=== PATIENT | male | born 1975 | race Caucasian/White ===

== ENCOUNTER 2018-11-17 11:27 | Emergency (ER) | payer OTHER ==
--- OUTSIDE RECORDS SUMMARY | 2018-11-17 11:34 | XMS REPORT | Continuity of Care Document ---
:1975 External Reference #:[id number] Author Name Kim Robert Care Team Providers Name Role Phone Moises Norris MD Primary Care Physician Unavailable Payers Date Identification Numbers Payment Provider Subscriber Policy Number: [id number] [employer] Sissy Caldwell [employer] Number: [id number] [id number] PayID: [id number] [place] [address] Advance Directives Description No Information Available Problems Date Description Provider Status Onset: 09/17/2014 Impaired fasting glycaemia Moises Norris M.D. Active Onset: 09/17/2014 Testicular hypofunction Moises Norris M.D. Active Onset: 09/22/2016 Difficulty breathing Zaynab Loco MD Active Onset: 11/06/2016 Mixed hyperlipidemia Moises Norris M.D. Active Onset: 11/06/2016 Asthma without status asthmaticus Moises Norris M.D. Active Onset: 12/11/2016 Obstructive sleep apnea syndrome Emperatriz Gallardo DNP, RN, Active X RAY OPERATOR-BC Onset: 12/11/2016 Hypersomnia Emperatriz Gallardo DNP, RN, Active X RAY OPERATOR-BC Onset: 03/16/2018 Right temporomendibular joint Moises Norris M.D. Active disorder Onset: 12/06/2017 Insomnia Moises Norris M.D. 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 [employer] ETOH Use Denies alcohol use ETOH Use Quit 6 years ago as of 2016 Tobacco Use Start: Unknown Patient has never smoked Recreational Drug Use Former Drug User 12 years ago was using cocaine Recreational Drug Use Quit 6 years ago as of 2016 Smoking Status Reviewed: 10/19/18 Patient has never smoked Exercise Type/Frequency Exercises regularly 5 days a week-1 hour , weight lifting, cardio , interval training Allergies, Adverse Reactions, Alerts Date Description Reaction Status Severity Comments 09/17/2014 NKDA Active 10/14/2018 Mold Active 10/14/2018 Animal Dander Active Medications Medication Date Status Form Strength Qnty SIG Indications Ordering Provider Trazodone HCL 12/06 Active Tablets 50mg 30tab Take 1 & G47.00 s 1/2 Tablet Pachikara, By Mouth M.D. AT Bedtime Mandibular 10/27 Active Device 1unit fabricate Emperatriz s oral Gallardo, Device appliance ABIEL, RN, /catherine RUIZ-BC r advancemen t device for sleep apnea with needed adjustment s. Proair HFA 06/07 Active Aerosol 108(90Bas 18uni 2 puffs ih J45.909 e) ts every 4 Pachikara, mcg/Act hours as M.D. needed Multi For Him Active Capsules once a day Unknown / Qvar Redihaler Active Aerosol 80mcg/Act 2 puffs Unknown /0000 twice daily Levocetirizine Active Tablets 5mg Take 1 Unknown Dihydrochloride /0000 Tablet By Mouth Every Day as Needed Qnasl Active Aerosol 80mcg/Act ( has not Unknown /0000 started , picked up from pharmacy) Ibuprofen 03/16 Hx Tablets 600mg 90tab three M26.601 s times a Pachikara, - day M.D. 10/13 Trazodone HCL 12/06 Hx Tablets 50mg 30tab take 1- J45.909 s 1/2 tab by Pachikara, - mouth at M.D. 12/06 bedtime Flovent Diskus 09/21 Hx Aerosol 250mcg/Bl 1 puff ist twice a - day (using 06/07 in the p.m.) Flonase Allergy 09/21 Hx Suspension 50mcg/Act spray 1 Unknown spray in - each 10/13 nostril directed Xtend Bcaas 06/29 Hx 1 scoop Camilo SNy daily Law, DO Supplement - FACC 06/06 Dulera 03/20 Hx Aerosol 200-5mcg/ 1unit 2 puff 493.90 Act s twice a Pachikara, - day M.D. 10/18 Ventolin HFA 03/20 Hx Aerosol 108(90Bas 8.5gm 2 puffs by J45.909 e) mouth four Pachikara, - mcg/Act times a M.D. needed(pat ient no longer using) Nasonex 03/20 Hx Suspension 50mcg/Act 1Mon 1 spray J45.909 tristan each Pachikara, - side every M.D. Testosyn 00 Hx 3 tabs bid Unknown /0000 - 10/18 Advair Diskus Hx Aerosol 250-50mcg 1 puff by Unknown /0000 /Dose mouth - twice a 10/07 day ( in the a.m.) Protein Shake 00 Hx 4 scoops Unknown (Raw Protein And /0000 daily Greens) - 09/21 Super Test 00/00 Hx 3 in Am, 3 Unknown /0000 in PM - m 06/06 Dhea 00/00 Hx 100mg 3 daily Unknown /0000 - 06/06 Wheybolic 0000 Hx Powder 4 scoops Unknown Extreme 60 /0000 daily - 06/06 Immunizations CPT Code Status Date Vaccine Reaction Lot # [id number] Given 10/19/2018 Tdap - [id number] Tetanus/Diptheria/Acellular Pertussis 13970 Given 06/07/2017 Influenza Virus Vaccine, no immediate reaction, [id number] Quadrivalent, Split, pt tolerated well Preservative Free Vital Signs Date Vital Result Comment 10/19/2018 2:45pm Height 71 inches 5'11" Weight 225.00 lb Heart Rate 100 /min BP Systolic Sitting 141 mmHg BP Diastolic Sitting 85 mmHg O2 % BldC Oximetry 99 % BMI (Body Mass Index) 31.4 kg/m2 10/14/2018 3:35pm Height 71 inches 5'11" Weight 220.00 lb no shoes Heart Rate 80 /min BP Systolic Sitting 134 mmHg lue reg cuff BP Diastolic Sitting 90 mmHg lue reg cuff BP Systolic Standing 140 mmHg lue reg cuff BP Diastolic Standing 100 mmHg lue reg cuff BP Systolic Lying Down 128 mmHg Rue lg cuff BP Diastolic Lying Down 90 mmHg Rue lg cuff Respiratory Rate 16 /min O2 % BldC Oximetry 98 % BMI (Body Mass Index) 30.7 kg/m2 Ejection Fraction 55-60% echo.07/03/2016 04/06/2018 8:07am Weight 222.00 lb with shoes Heart Rate 87 /min BP Systolic 122 mmHg BP Diastolic 80 mmHg O2 % BldC Oximetry 98 % 03/16/2018 3:02pm Height 71 inches 5'11" Weight 222.00 lb Heart Rate 79 /min BP Systolic Sitting 130 mmHg BP Diastolic Sitting 78 mmHg Body Temperature 97.9 F O2 % BldC Oximetry 96 % BMI (Body Mass Index) 31.0 kg/m2 12/15/2017 8:32am Weight 224.00 lb Heart Rate 84 /min BP Systolic 125 mmHg BP Diastolic 76 mmHg O2 % BldC Oximetry 99 % 12/06/2017 1:36pm Height 70.5 inches 5'10.50" Weight 223.38 lb Heart Rate 78 /min BP Systolic 110 mmHg BP Diastolic 76 mmHg O2 % BldC Oximetry 96 % BMI (Body Mass Index) 31.6 kg/m2 06/07/2017 3:03pm Height 70.5 inches 5'10.50" Weight 231.25 lb Heart Rate 79 /min BP Systolic 134 mmHg BP Diastolic 68 mmHg Body Temperature 98.6 F O2 % BldC Oximetry 96 % BMI (Body Mass Index) 32.7 kg/m2 03/12/2017 9:32am Height 70.5 inches 5'10.50" Weight 235.00 lb Heart Rate 70 /min BP Systolic Sitting 108 mmHg BP Diastolic Sitting 86 mmHg Respiratory Rate 20 /min O2 % BldC Oximetry 97 % room air BMI (Body Mass Index) 33.2 kg/m2 12/11/2016 10:43am Height 70.5 inches 5'10.50" Weight 228.00 lb Heart Rate 79 /min BP Systolic Sitting 120 mmHg BP Diastolic Sitting 72 mmHg Respiratory Rate 16 /min Pain Level 0 O2 % BldC Oximetry 94 % BMI (Body Mass Index) 32.2 kg/m2 11/06/2016 2:43pm Height 70.5 inches 5'10.50" Weight 228.00 lb Heart Rate 80 /min BP Systolic Sitting 116 mmHg BP Diastolic Sitting 84 mmHg Body Temperature 98.1 F O2 % BldC Oximetry 98 % BMI (Body Mass Index) 32.2 kg/m2 10/19/2016 10:07am Height 71 inches 5'11" Weight 224.00 lb Heart Rate 80 /min BP Systolic Sitting 126 mmHg BP Diastolic Sitting 72 mmHg Respiratory Rate 14 /min O2 % BldC Oximetry 97 % BMI (Body Mass Index) 31.2 kg/m2 09/22/2016 11:10am Height 71 inches 5'11" Weight 220.00 lb Heart Rate 94 /min BP Systolic Sitting 130 mmHg BP Diastolic Sitting 74 mmHg Respiratory Rate 14 /min O2 % BldC Oximetry 97 % BMI (Body Mass Index) 30.7 kg/m2 Neck Circumference in inches 17.25 07/06/2016 3:47pm Height 71 inches 5'11" Weight 222.00 lb without shoes Heart Rate 80 /min BP Systolic Sitting 120 mmHg Ra lg cuff BP Diastolic Sitting 90 mmHg Ra lg cuff BP Systolic Standing 120 mmHg Ra lg cuff BP Diastolic Standing 92 mmHg Ra lg cuff Respiratory Rate 17 /min BMI (Body Mass Index) 31.0 kg/m2 Ejection Fraction 55-60% date 07/03/16 ECHO 06/29/2016 3:25pm Height 71 inches 5'11" Weight 224.50 lb with shoes Heart Rate 88 /min BP Systolic 110 mmHg Ra lg cuff BP Diastolic 80 mmHg Ra lg cuff BP Systolic Sitting 110 mmHg La lg cuff BP Diastolic Sitting 80 mmHg La lg cuff BP Systolic Standing 124 mmHg La lg cuff BP Diastolic Standing 88 mmHg La lg cuff Respiratory Rate 18 /min BMI (Body Mass Index) 31.3 kg/m2 05/06/2016 1:05pm Height 71 inches 5'11" Weight 222.00 lb Heart Rate 85 /min BP Systolic Sitting 124 mmHg BP Diastolic Sitting 82 mmHg O2 % BldC Oximetry 97 % BMI (Body Mass Index) 31.0 kg/m2 10/18/2015 10:00am Height 71 inches 5'11" Weight 216.50 lb Heart Rate 78 /min BP Systolic Sitting 112 mmHg BP Diastolic Sitting 82 mmHg Body Temperature 97.9 F O2 % BldC Oximetry 98 % BMI (Body Mass Index) 30.2 kg/m2 03/20/2015 7:34am Weight 220.00 lb Heart Rate 83 /min BP Systolic Sitting 115 mmHg BP Diastolic Sitting 77 mmHg Body Temperature 97.4 F 09/17/2014 1:49pm Height 71.25 inches 5'11.25" Weight 229.00 lb Heart Rate 80 /min BP Systolic Sitting 126 mmHg BP Diastolic Sitting 84 mmHg Body Temperature 98.3 F O2 % BldC Oximetry 96 % BMI (Body Mass Index) 31.7 kg/m2 Results Test Date Facility Test Result H/L Range Note Laboratory test [facility] Hepatitis B Nonreactive Nonreactive finding [address] [place] [address] [phone] Hepatitis B Core AB Igm MML Negative Negative 1 Hepatitis B Core AB Igm Nonreactive Nonreactive Hepatitis B Core AB Total Negative Negative 2 Laboratory 12/06/2017 [facility] Hepatitis C Nonreactive Nonreactive test finding [address] [place] [address] [phone] Hepatitis B 12/06/2017 [facility] Hepatitis B Immune Immune Bobby AB Titer [address] [place] [address] [phone] Hep B Surf AB Level 759.53 mIU/mL >12 Lipid Profile 11/29/2017 [facility] Triglycerides 52 mg/dL 3 (Trig/Chol/HDL) [address] [place] [address] [phone] Cholesterol 177 mg/dL 4 HDL Cholesterol 45.3 mg/dL 5 LDL Cholesterol 121 mg/dL 6 Laboratory 06/03/2017 [facility] Testosterone 1229.80 High 240 -950 7, 8 test finding [address] Total ng/dL [place], [place] [id number] [phone] PSA Screening 0.933 ng/mL N 0-4.000 9 Lipid Profile 06/03/2017 [facility] Triglycerides 84 mg/dL N 10 (Trig/Chol/HDL) [address] [place], [place] [address] [phone] Cholesterol 207 mg/dL N 11 HDL Cholesterol 20.7 mg/dL N 12 LDL Cholesterol 170 mg/dL N 13 CBC Auto Diff 06/03/2017 [facility] White Blood 5.3 10^3/uL N 3.5-10.[address] [place] [address] [phone] Red Blood Count 5.83 10^6/uL High 4.0-5.4 Hemoglobin 17.1 g/dL N 14.0-18.0 Hematocrit 51 % N 42-52 Mean Corpuscular Volume 87 fL N 80-94 Mean Corpuscular Hemoglobin 29 pg N 27-31 Mean Corpuscular HGB Conc 34 g/dL N 31-36 Red Cell Distribution Width 15 % N 10.5-15 Platelet Count 247 10^3/uL N 150-450 Mean Platelet Volume 10 um3 N 7.4-10.4 Abs Neutrophils 3.1 10^3/uL N 1.5-7.7 Abs Lymphocytes 1.6 10^3/uL N 1.0-4.8 Abs Monocytes 0.5 10^3/uL N 0-0.8 Abs Eosinophils 0.1 10^3/uL N 0-0.6 Abs Basophils 0 10^3/uL N 0-0.2 Abs Nucleated RBC 0 10^3/uL N Granulocyte % 58.2 % N 38-83 Lymphocyte % 30.3 % N 25-47 Monocyte % 8.9 % N 1-9 Eosinophil % 1.8 % N 0-6 Basophil % 0.8 % N 0-2 Nucleated Red Blood Cells % 0.1 N Liver Function 06/03/2017 [facility] Total Protein 6.6 g/dL N 6.4-8.[address] [place] [address] [phone] Albumin 4.3 g/dL N 3.2-5.2 Globulin 2.3 g/dL N 2-4 Albumin/Globulin Ratio 1.9 N 1-3 Total Bilirubin 0.80 mg/dL N 0.2-1.0 Direct Bilirubin 0.10 mg/dL N 0.03-0.18 Indirect Bilirubin 0.7 mg/dL N 0.3-1.0 Alkaline Phosphatase 41 U/L N 34-104 Alt 28 U/L N 7-52 Ast 28 U/L N 13-39 Comp Metabolic Panel 06/03/2017 [facility] Sodium 134 mmol/L N 133-[address] [place] [address] [phone] Potassium 4.4 mmol/L N 3.5-5.0 Chloride 101 mmol/L N 101-111 Co2 Carbon Dioxide 28 mmol/L N 22-32 Anion Gap 5 mmol/L N 2-11 Glucose 82 mg/dL N 70-100 Blood Urea Nitrogen 18 mg/dL N 6-24 Creatinine 1.21 mg/dL High 0.67-1.17 BUN/Creatinine Ratio 14.9 N 8-20 Calcium 9.1 mg/dL N 8.6-10.3 Total Protein 6.7 g/dL N 6.4-8.9 Albumin 4.4 g/dL N 3.2-5.2 Globulin 2.3 g/dL N 2-4 Albumin/Globulin Ratio 1.9 N 1-3 Total Bilirubin 0.80 mg/dL N 0.2-1.0 Alkaline Phosphatase 39 U/L N 34-104 Alt 28 U/L N 7-52 Ast 27 U/L N 13-39 Egfr Non- 65.4 N >60 Egfr 84.2 N >60 14 Laboratory test 06/03/2017 [facility] TSH (Thyroid 1.33 mcIU/mL N 0.34-5.[address] Stim [place]orm) [place] [address] [phone] Folic Acid (Folate) > 20.00 ng/mL N >3.99 Vitamin B12 683 pg/mL N 180-914 15 Urinalysis Profile 06/03/2017 [facility] Urine Color Yellow N [address] [place] [address] [phone] Urine Appearance Clear N Urine Specific [place] 1.011 N 1.010-1.030 Urine pH 6.0 N 5-9 Urine Urobilinogen Negative N Negative Urine Ketones Negative N Negative Urine Protein Negative N Negative Urine Leukocytes Negative N Negative Urine Blood Negative N Negative Urine Nitrite Negative N Negative Urine Bilirubin Negative N Negative Urine Glucose Negative N Negative Testosterone 11/24/2016 [facility] Free 12.3 N 4.46-17.1 16 Free & Total [address] Testosterone ng/[place] [address] ng/dl [phone] Testosterone 232 ng/dL Abnormal 240-950 17 Lipid Profile 11/04/2016 [facility] Triglycerides 81 mg/dL N 18 (Trig/Chol/HDL) [address] [place], [place] [address] [phone] Cholesterol 221 mg/dL N 19 HDL Cholesterol 31.3 mg/dL N 20 LDL Cholesterol 174 mg/dL N 21 Laboratory test 11/04/2016 [facility] Glucose 92 mg/dL N 70- 100 22 finding [address] [place], [place] [address] [phone] Lipid Profile 10/11/2015 [facility] Triglycerides 75 mg/dL N 23 (Trig/Chol/HDL) [address] [place], [place] [address] [phone] Cholesterol 191 mg/dL N 24 HDL Cholesterol 63.0 mg/dL N 25 LDL Cholesterol 113 mg/dL N 26 Laboratory test 10/11/2015 [facility] Glucose 101 mg/dL High 70-100 finding [address] [place], [place] [address] [phone] Basic Metabolic 10/01/2014 [facility] Sodium 136 mmol/L N 133- 145 27 Panel [address] [place] [address] [phone] Potassium 4.0 mmol/L N 3.5-5.0 Chloride 104 mmol/L N 101-111 Co2 Carbon Dioxide 26 mmol/L N 22-32 Anion Gap 6 mmol/L N 2-11 Glucose 107 mg/dL High 70-100 Blood Urea Nitrogen 14 mg/dL N 6-24 Creatinine 1.07 mg/dL N 0.67-1.17 BUN/Creatinine Ratio 13.1 N 8-20 Calcium 9.1 mg/dL N 8.6-10.3 Egfr Non- 76.2 N >60 Egfr 97.9 N >60 28 Testosterone Free 10/01/2014 [facility] Free Testosterone 18 ng/ dL N 9-30 29 & Total [address] ng/[place] [address] [phone] Testosterone 427 ng/dL N 240-950 30 Laboratory test 10/01/2014 [facility] PSA Screening 0.632 N 0- 4.000 [address] ng/mL [place], [place] [address] [phone] Lipid Profile 09/13/2014 [facility] Triglycerides 123 mg/dL N 32, 33 (Trig/Chol/HDL) [address] [place] [address] [phone] Cholesterol 200 mg/dL N 34 HDL Cholesterol 53.3 mg/dL N 35 LDL Cholesterol 122 mg/dL N 36 Laboratory test 09/13/2014 [facility] Glucose 103 mg/dL High 70-100 [address] [place] [address] [phone] 1 Test Performed by: [facility] [address] [place] [address] 2 Test Performed by: [facility] [address] [place] [address] 3 Desirable: <150 Borderline High: 150-199 High: 200-499 Very High: >500 4 Desirable: <200 Borderline High: 200-239 High: >239 5 Low: <40 Desirable: 40-60 High: >60 6 Desirable: <100 Near Optimal: 100-129 Borderline High: 130-159 High: 160-189 Very High: >189 7 FASTING 8 FASTING 9 Serum levels of PSA measured using the Brittany PenPath DXI Hybritech immunoassay should not be interpreted as absolute evidence of the presence or absence of disease. The PSA value should be used in conjunction with other pertinent clinical diagnostic procedures. The values obtained with different assay methods or kits cannot be used interchangeably. 10 Desirable <150 Borderline high 150-199 High 200-499 Very High >500 11 Desirable <200 Borderline high 200-239 High >239 12 Low <40 Desirable: 40-60 High: >60 13 Desirable: <100 mg/dL Near Optimal: 100-129 mg/dL Borderline High: 130-159 mg/dL High: 160-189 mg/dL Very High: >189 mg/dL 14 Because ethnic data is not always readily available, this report includes an eGFR for both -Americans and non- Americans. The National Kidney Disease Education Program (NKDEP) does not endorse the use of the MDRD equation for patients that are not between the ages of 18 and 70, are , have extremes of body size, muscle mass, or nutritional status, or are non- or non-. According to the National Kidney Foundation, irrespective of diagnosis, the stage of the disease is based on the level of kidney function: Stage Description GFR(mL/min/1.73 m(2)) 1 Kidney damage with normal or decreased GFR 90 2 Kidney damage with mild decrease in GFR 60-89 3 Moderate decrease in GFR 30-59 4 Severe decrease in GFR 15-29 5 Kidney failure <15 (or dialysis) 15 Normal Range 180 to 914 Indeterminate Range 145 to 180 Deficient Range <145 16 ADDITIONAL INFORMATION Testing performed by [facility]. This test was developed and its performance characteristics determined by [facility] in a manner consistent with CLIA requirements. This test has not been cleared or approved by the U.S. Food and Drug Administration. 17 ADDITIONAL INFORMATION Testing performed by Liquid Chromatography-Tandem Mass Spectrometry (LC-MS/MS). This test was developed and its performance characteristics determined by [facility] in a manner consistent with CLIA requirements. This test has not been cleared or approved by the U.S. Food and Drug Administration. Test Performed by: [address] [address] 18 Desirable <150 Borderline high 150-199 High 200-499 Very High >500 19 Desirable <200 Borderline high 200-239 High >239 20 Low <40 Desirable: 40-60 High: >60 21 Desirable: <100 mg/dL Near Optimal: 100-129 mg/dL Borderline High: 130-159 mg/dL High: 160-189 mg/dL Very High: >189 mg/dL 22 FASTING 10 HOUR 23 Desirable <150 Borderline high 150-199 High 200-499 Very High >500 24 Desirable <200 Borderline high 200-239 High >239 25 Low <40 Desirable: 40-60 High: >60 26 Desirable: <100 mg/dL Near Optimal: 100-129 mg/dL Borderline High: 130-159 mg/dL High: 160-189 mg/dL Very High: >189 mg/dL 27 FASTING 12 HOUR 28 Because ethnic data is not always readily available, this report includes an eGFR for both -Americans and non- Americans. The National Kidney Disease Education Program (NKDEP) does not endorse the use of the MDRD equation for patients that are not between the ages of 18 and 70, are , have extremes of body size, muscle mass, or nutritional status, or are non- or non-. According to the National Kidney Foundation, irrespective of diagnosis, the stage of the disease is based on the level of kidney function: Stage Description GFR(mL/min/1.73 m(2)) 1 Kidney damage with normal or decreased GFR 90 2 Kidney damage with mild decrease in GFR 60-89 3 Moderate decrease in GFR 30-59 4 Severe decrease in GFR 15-29 5 Kidney failure <15 (or dialysis) 29 ADDITIONAL INFORMATION Testing performed by [facility]. 30 ADDITIONAL INFORMATION Testing performed by Liquid Chromatography-Tandem Mass Spectrometry (LC-MS/MS). Test Performed by: [place] [address] Byproducts Extractor: Ronak Gonzalez M.D. 31 FASTING 12 HOUR 32 FASTING 10 HOUR 33 Desirable <150 Borderline high 150-199 High 200-499 Very High >500 34 Desirable <200 Borderline high 200-239 High >239 35 Low <40 Desirable: 40-60 High: >60 36 Desirable <100 Near Optimal 100-129 Borderline high 130-159 High 160-189 Very High >189 37 FASTING 10 HOUR Procedures Date Code Description Status 01/27/2017 14909 Stress Test Completed 09/30/2016 26901 Sleep Study Unattended,HRT Rate,Oxygen Sat,Resp Completed Effort/Airflow 07/03/2016 29164 ECHO Transthoracic, Real-Time 2D With Doppler And Color Completed Flow 07/02/2016 00557 Holter Monitor Review (24 hr)dr review & interp only Completed 07/01/2016 92522 ECG Monitor/Recording W/Visual Superimposition Scanning Completed 06/29/2016 43764 EKG Tracing & Interpretation Completed 03/14/2013 48907 Stress Test Completed Encounters Type Date Location Provider Dx Diagnosis Office Visit 10/14/2018 Linda Giron R07.9 Chest pain, unspecified 4:00p Cardiology Of DO Tiff Law FACC Office Visit 04/06/2018 [facility] [place] M26.601 Right temporomandibular 8:00a Bridgette Norris joint disorder, Leland Levine unspecified J45.909 Unspecified asthma, uncomplicated G47.00 Insomnia, unspecified Office 03/16/2018 [facility] [place] M26.601 Right Visit 2:40p Bridgette Norris M.D. temporomandibular [place] joint disorder, unspecified Office 12/15/2017 [facility] [place] B18.1 Chronic viral Visit 8:40a Bridgette Norris M.D. hepatitis B without [place] delta-agent G47.00 Insomnia, unspecified Office Visit 12/06/2017 [facility] [place] J45.909 Unspecified asthma, 1:40p Bridgette Norris M.D. uncomplicated [address] E78.2 Mixed hyperlipidemia G47.00 Insomnia, unspecified Z11.59 Encounter for screening for other viral diseases Office Visit 06/07/2017 [facility] [place] J45.909 Unspecified asthma, 2:40p Bridgette Norris M.D. uncomplicated [address] E78.2 Mixed hyperlipidemia E29.1 Testicular hypofunction Z23 Encounter for immunization Office Visit 03/12/2017 [facility] Emperatriz G47.33 Obstructive sleep 9:15a [facility] ABIEL Gallardo RN, [facility] G47.14 Hypersomnia due to medical condition Office Visit 12/11/2016 [facility] Emperatriz G47.33 Obstructive sleep 10:45a [facility] Of ABIEL Gallardo RN, apnea (adult) [facility] X RAY OPERATOR-BC (pediatric) G47.14 Hypersomnia due to medical condition Office Visit 11/06/2016 3:00p [facility] [place] Norris, Z00.00 Encntr for Bridgette Driscoll M.D. general adult [address] medical exam w/o abnormal findings E78.2 Mixed hyperlipidemia J45.909 Unspecified asthma, uncomplicated E29.1 Testicular hypofunction Office Visit 10/19/2016 [facility] Emperat[facility] G47.33 Obstructive sleep 10:15a [facility] Of ABIEL Gallardo RN, apnea (adult) [facility] X RAY OPERATOR-BC (pediatric) G47.14 Hypersomnia due to medical condition Z72.821 Inadequate sleep hygiene R00.2 Palpitations Office Visit 09/22/2016 11:00a [facility] Sleep Zaynab Loco, R06.83 Snoring Services Of [facility] R40.0 Somnolence R94.2 Abnormal results of pulmonary function studies R00.2 Palpitations Office Visit 07/06/2016 4:00p [facility] Camilo Giron R06.81 Apnea, not Of [facility] DO Thanh elsewhere FACC classified Office Visit 06/29/2016 4:00p [facility] Camilo Giron R00.2 Palpitations Of [facility] DO Thanh [facility] R42 Dizziness and giddiness R73.01 Impaired fasting glucose Office Visit 05/06/2016 1:00p [facility] Mo[place] Norris, R53.83 Other fatigue Medicine - M.D. [place] R73.01 Impaired fasting glucose N50.8 Other specified disorders of male genital organs Office Visit 10/18/2015 10:00a [facility] Mo[place] Norris, R73.01 Impaired Medicine - M.D. fasting glucose [place] K57.30 Dvrtclos of lg int w/o perforation or abscess w/o bleeding Z00.00 Encntr for general adult medical exam w/o abnormal findings J45.909 Unspecified asthma, uncomplicated Office Visit 03/20/2015 7:40a [facility] Mo[place] Norris, 790.21 Impaired Medicine - M.D. Fasting Glucose [place] 493.90 Asthma Unspec W/O Status Asthmaticus Office Visit 09/17/2014 2:00p [facility] Mo[place] Norris, 790.21 Impaired Medicine - M.D. Fasting Glucose [place] V70.0 Examination General Medical Routine [facility] 257.2 Testicular Hypofunction Other Plan of Treatment Future Appointment(s):10/20/2018 10:30 am - Camilo Law DO [facility] at [facility]10/19/2018 - Syl Peralta MDZ00.00 Encounter for general adult medical examination without abnoE78.2 Mixed [id number] Obstructive sleep apnea (adult) (pediatric)Comments:Continue CPAPR73.01 Impaired fasting glucoseComments:Will [id number] Encounter for immunization
--- OUTSIDE RECORDS SUMMARY | 2018-11-17 11:34 | XMS REPORT | Continuity of Care Document ---
:1975 External Reference #:[id number] Author Name Evin Caldwell MD Address [address] [place] [address] Care Team Providers Name Role Phone Moises Norris MD Care Team Information Maintainer Plant Unavailable Moises Norris MD Primary Care Physician Unavailable Payers Date Identification Numbers Payment Provider Subscriber Policy Number: [id number] Malcolm Sissy Javi PayID: [id number] [address] [place] [address] Advance Directives Description No Information Available Problems Date Description Provider Status Onset: 10/07/2018 Uncomplicated moderate persistent Evin Caldwell MD Active asthma Onset: 10/07/2018 Allergic rhinitis Evin Caldwell MD Active Onset: 10/07/2018 Allergic rhinitis due to pollen Evin Caldwell MD Active Family History Date Family Member(s) Observation Comments General No Current Problems Social History Type Date Description Comments Sex Unknown Home Environment Has a window air conditioner Home Environment The floors are wood Home Environment The floors are carpeted Home Environment The floors are tile Home Environment [place] [employer] Smoke-Free 10/07/2018 Home is smoke-free Pets 2 dogs Tobacco Use Start: Unknown Patient has never smoked Smoking Status Reviewed: 10/31/18 Patient has never smoked Allergies, Adverse Reactions, Alerts Description No Known Drug Allergies Medications Medication Date Status Form Strength Qnty SIG Indications Ordering Provider Qnasl 10/07 Active Aerosol 80mcg/Act 8.700 2 puffs each J30.1 gm nostril Ash Caldwell MD every day Xyzal 10/07 Active Tablets 5mg 30tab take 1 J30.1 Christopher Allergy 24HR s tablet (5 Ash Caldwell MD mg) by oral route once daily as needed Proair HFA 10/07 Active Aerosol 108(90Bas 8.500 2 puffs J30.1 e) gm every 4 as Ash Caldwell MD mcg/Act needed Pulmicort 10/07 Active Aerosol 180mcg/Ac 1unit 2 Brayden, Flexhaler /2018 t s inhalations JENELLE Ye twice daily Asmanex HFA 10/07 Hx Aerosol 200mcg/Ac 13gm 2 puff twice J30.1 t a day Ash Caldwell MD - 10/07 Nasonex Hx Suspension 50mcg/Act 2 intranasal Unknown /0000 puffs every - day 10/31 Advair Hx Aerosol 100-50mcg 1 puff twice Unknown Diskus /0000 /Dose a day - 10/31 Immunizations Description No Information Available Vital Signs Date Vital Result Comment 10/31/2018 8:48am BP Systolic 132 mmHg BP Diastolic 94 mmHg Height 68 inches 5'8" Weight 215.00 lb BMI (Body Mass Index) 32.7 kg/m2 Heart Rate 101 /min Respiratory Rate 18 /min Body Temperature 98.7 F O2 % BldC Oximetry 97 % 10/07/2018 3:02pm BP Systolic 128 mmHg BP Diastolic 90 mmHg Height 68 inches 5'8" Weight 215.00 lb BMI (Body Mass Index) 32.7 kg/m2 Heart Rate 82 /min Respiratory Rate 18 /min O2 % BldC Oximetry 98 % Results Description No Information Available Procedures Date Code Description Status 10/07/2018 28909 Nitric Oxide Gas Determination Completed 10/07/2018 71693 Allergy Tests Percutaneous W/ Allergenic Extracts Completed 10/07/2018 29919 Demonstration/Eval,Of Patient Utilization Of Completed Aerosol,Nebulizer 10/07/2018 50097 Bronchodilation Responsiveness Spirometry Pre/Post Completed Bronchodil Adm Encounters Type Date Location Provider Dx Diagnosis Office Visit 10/31/2018 MARTHA Wing J45.40 Moderate persistent 9:00a asthma, uncomplicated J30.1 Allergic rhinitis due to pollen J30.89 Other allergic rhinitis Office Visit 10/07/2018 3:00p Linda Caldwell, J30.1 Allergic rhinitis MD due to pollen J30.89 Other allergic rhinitis J45.40 Moderate persistent asthma, uncomplicated Plan of Treatment 10/31/2018 - Rohan Macedo, MARTHAJ45.40 Moderate persistent asthma, uncomplicatedComments:Patient's environmental skin test showed 2+ or 3+ to all allergens tested. Patient's CBC is within normal limits. Patient's PFT is also within normal limits and exhaled nitric oxide is normal at 18 ppb. Patient 's total IgE is 3.5 kU/l. Patient to continue Pulmicort for prophylaxis of his lungs andpro-air for breakthrough chest symptoms. Patient to use Qnasl for prophylaxis of his nose and Xyzalfor breakthrough nasal symptoms. Saline nasal rinse and HEPA air filter may help decrease allergens. Warm salt water gargles may help decrease postnasal drip. Greater than 50% of the 25-minute visit was spent in discussion of the testing results and treatment options.Follow up:6 months, PFT and NIOX bialbT10.1 Allergic rhinitis due to ulchofT37.89 Other allergic rhinitis
--- OUTSIDE RECORDS SUMMARY | 2018-11-17 11:34 | XMS REPORT | Continuity of Care Document ---
:1975 External Reference #:[id number] Author Name Gray[facility]ilona Care Team Providers Name Role Phone Moises Norrsi MD Care Team Information Assistant Corporate Controller Unavailable Moises Norris MD Primary Care Physician Unavailable Payers Date Identification Numbers Payment Provider Subscriber Policy Number: [id number] Malcolm Caldwell PayID: [id number] [address] [place] [address] Advance Directives Description No Information Available Problems [...] Environment The floors are tile Home Environment [place] [employer] Smoke-Free 10/07/2018 Home is smoke-free Pets 2 dogs Tobacco Use Start: Unknown Patient has never smoked Smoking Status Reviewed: 10/07/18 Patient has never smoked Allergies, Adverse Reactions, Alerts Description No Known Drug Allergies Medications Medication Date Status Form Strength Qnty SIG Indications Ordering Provider Qnasl 10/07 Active Aerosol 80mcg/Act 8.700 2 puffs each J30.1 gm nostril Ash Caldwell MD every day Xyzal 10/07 Active Tablets 5mg 30tab take 1 J30.1 [facility] (5 Ash Caldwell MD mg) by oral route once daily as needed Proair HFA 10/07 Active Aerosol 108(90Bas 8.500 2 puffs J30.1 e) gm every 4 as Ash Caldwell MD mcg/Act needed Pulmicort 10/07 Active Aerosol 180mcg/Ac 1unit 2 Brayden, Flexhal t s inhalations JENELLE Ye twice daily [...] Available Procedures Date Code Description Status 10/07/2018 89687 Nitric Oxide Gas Determination Completed 10/07/2018 54638 Allergy Tests Percutaneous W/ Allergenic Extracts Completed 10/07/2018 72340 Demonstration/Eval,Of Patient Utilization Of Completed Aerosol,Nebulizer 10/07/2018 38491 Bronchodilation Responsiveness Spirometry Pre/Post Completed Bronchodil Adm Encounters Type Date Location Provider Dx Diagnosis Office Visit 10/07/2018 [place] Evin Caldwell, J30.1 Allergic rhinitis 3:00p due to pollen J30.89 Other allergic rhinitis J45.40 Moderate persistent asthma, uncomplicated Plan of Treatment 10/07/2018 - Evin Caldwell MDJ30.1 Allergic rhinitis due to pollenNew Medication:Qnasl 80 mcg/Act - 2 puffs each nostril every dayXyzal Allergy 24HR 5 mg - take 1 tablet (5 mg) by oral route once daily as neededProair HFA 108(90 Base) mcg/Act - 2 puffs every 4 as neededAsmanex HFA 200 mcg/Act - 2 puff twice a dayJ30.89 Other allergic uvdoxtkjR93.40 Moderate persistent asthma, uncomplicated
[2018-11-17 11:43] VITALS: BP 128/78
--- NOTE | 2018-11-17 12:12 | UC ---
Throat Pain/Nasal [place]onte HPI - HPI Summary HPI Summary: 2 days of sinus congestion, tooth pain. feels he has post nasal drip. denies fever. - History of Current Complaint Chief Complaint: UCRespiratory Stated Complaint: SINUS Time Seen by Provider: 11/17/18 12:08 Hx Obtained From: Patient Pain Intensity: 2 Pain Scale Used: 0-10 Numeric Cough: None Associated Signs & Symptoms: Positive: Sinus Discomfort - Allergies/Home Medications Allergies/Adverse Reactions: Allergies Allergy/AdvReac Type Severity Reaction Status Date / Time No Known Allergies Allergy Verified 11/17/18 11:43 PMH/Surg Hx/FS Hx/Imm Hx Previously Healthy: Yes - Surgical History Surgical History: Yes Surgery Procedure, Year, and Place: ORIF/PLATE IN RT HUMERUS - Family History Known Family History: Positive: Cardiac Disease, Diabetes, Other - vertigo - Social History Alcohol Use: None 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 Substance Use Type: None Smoking Status (MU): Never Smoked Tobacco Review of Systems All Other Systems Reviewed And Are Negative: Yes Constitutional: Positive: Negative Skin: Negative: Rash ENT: Positive: Ear Ache, Nasal Discharge, Sinus Congestion Respiratory: Negative: Shortness Of Breath, Cough Neurological: Negative: Headache Physical Exam Triage Information Reviewed: Yes Appearance: Well-Appearing Vital Signs: Initial Vital Signs Temp 99 F 11/17/18 11:41 Pulse 95 11/17/18 11:41 Resp 18 11/17/18 11:41 BP 128/78 11/17/18 11:41 Pulse Ox 99 11/17/18 11:41 ENT: Positive: Pharynx normal, TMs normal, Hoarse voice, Uvula midline. Negative: Sinus tenderness Dental: Negative: Percussion Tenderness @ Neck: Positive: Supple, Nontender, No Lymphadenopathy. Negative: Nuchal Rigidity Throat Pain/Nasal Course/Dx - Course Course Of Treatment: viral sinusitis but have offered antibx should he feel he needs it after a few days. vitals good. - Differential Dx/Diagnosis Differential Diagnosis/HQI/PQRI: Pharyngitis, Sinusitis, URI Provider Diagnosis: Sinusitis Discharge - Sign-Out/Discharge Documenting (check all that apply): Patient Departure All imaging exams completed and their final reports reviewed: No Studies - Discharge Plan Condition: Good Disposition: HOME Prescriptions: Amoxicillin/Clavulanate TAB* [Augmentin TAB 875*] 875 mg PO BID 5 Days #10 tab Patient Education Materials: Sinusitis (ED) Referrals: Syl Peralta MD [Primary Care Provider] - Additional Instructions: I don't think this is bacterial but I have sent antibiotics should you feel you need it after another 3-5 days. Antibiotics are not a benign medication and should be taken with caution. - Billing Disposition and Condition Condition: GOOD Disposition: Home
== END 2018-11-17 12:24 | disposition home or self-care (01) ==
LOC: UCEAST 11:27
DX: J32.9 Chronic sinusitis, unspecified (principal)
CPT/HCPCS: 99212; G0463

== ENCOUNTER 2022-08-20 15:47 | Observation (INO) ==
[2022-08-20] MEDS ORDERED: Ondansetron ODT 4 mg TAB 4 MG TAB PO ONE (16:32)
[2022-08-20 16:54] LABS: ABS Eosinophils 0.1 10^3/ul (0-0.6); ABS Lymphocytes 1.4 10^3/ul (1.0-4.8); ABS Neutrophils 14.1 10^3/ul (1.5-7.7); Eosinophil % 0.4 %; Hematocrit 49 % (42-52); Hemoglobin 16.4 g/dL (14.0-18.0); Lymphocyte % 8.2 %; Mean Corpuscular HGB Conc 34 g/dL (31-36); Mean Corpuscular Hemoglobin 29 pg (27-31); Mean Corpuscular Volume 86 fL (80-94); Mean Platelet Volume 9.3 fL (7.4-10.4); Platelet Count 250 10^3/uL (150-450); Red Blood Count 5.71 10^6 /uL (4.18-5.48); Red Cell Distribution Width 14 % (10-15); White Blood Count 16.5 10^3/uL (3.5-10.8)
[2022-08-20 17:31] LABS: Albumin 4.3 g/dL (3.2-5.2); Albumin/Globulin Ratio 1.7 (1-3); C Reactive Protein 27.41 mg/L (<8.01); Calcium 8.8 mg/dL (8.6-10.3); Globulin 2.6 g/dL (2-4); Potassium 4.2 mmol/L (3.5-5.0); Total Bilirubin 0.6 mg/dL (0.2-1.0); Total Protein 6.9 g/dL (6.4-8.9); eGFR CKD-EPI 91.2 (>60)
[2022-08-20] MEDS ORDERED: Iohexol 350 (CONTRAST) 500 ML MDV IV ONE (17:55)
[2022-08-20 18:28] LABS: Urine Appearance Clear; Urine Bilirubin Negative (Negative); Urine Blood Negative (Negative); Urine Color Yellow; Urine Glucose Negative (Negative); Urine Ketones Negative (Negative); Urine pH 6.5 (5.0-9.0)
[2022-08-20 18:29] LABS: Urine Nitrite Negative (Negative); Urine Protein Negative (Negative); Urine Urobilinogen 0.2 (Negative) (Negative)
[2022-08-20] MEDS ORDERED: Piperacillin/Tazobac ADVAN 3.375 GM in NS 0.9% 100 ml BAG 100 ML IV ONE (19:21)
[2022-08-20] MEDS ORDERED: Lactated Ringers 1000 ml BAG 1,000 ML IV ONE (19:21)
[2022-08-20] MEDS ORDERED: Morphine 4 MG/ML VIAL (1 ml) IV ONE ×2 (20:08→21:37)
[2022-08-20] MEDS ORDERED: NS 0.9% 1000 ml BAG 1,000 ML IV SCH (21:45)
[2022-08-20] MEDS ORDERED: Zosyn per Pharmacy NOTE FOLLOW UP SCH (22:00)
[2022-08-21] MEDS: ZOSYN 3.375 GM Q8H per EXTENDED INFUSION IV SCH ×4 (00:08→19:05)
[2022-08-21] MEDS: Morphine 2 MG/ML SYRINGE IV PRN ×5 (03:10→21:28)
[2022-08-21] MEDS: Heparin 5000 UNITS/ML 1 mL VIAL SUBCUT SCH ×5 (03:15→21:26)
[2022-08-21 05:51] LABS: ABS Basophils 0.1 10^3/ul (0-0.2); ABS Eosinophils 0.2 10^3/ul (0-0.6); ABS Lymphocytes 1.3 10^3/ul (1.0-4.8); ABS Monocytes 0.8 10^3/ul (0-0.8); ABS Neutrophils 7.5 10^3/ul (1.5-7.7); Eosinophil % 1.6 %; Hematocrit 47 % (42-52); Hemoglobin 15.7 g/dL (14.0-18.0); Lymphocyte % 13.5 %; Mean Corpuscular HGB Conc 33 g/dL (31-36); Mean Corpuscular Hemoglobin 29 pg (27-31); Mean Corpuscular Volume 86 fL (80-94); Mean Platelet Volume 8.9 fL (7.4-10.4); Platelet Count 211 10^3/uL (150-450); Red Blood Count 5.47 10^6 /uL (4.18-5.48); Red Cell Distribution Width 14 % (10-15); White Blood Count 9.8 10^3/uL (3.5-10.8)
[2022-08-21 06:41] LABS: C Reactive Protein 49.47 mg/L (<8.01); Calcium 8.2 mg/dL (8.6-10.3); Potassium 4.6 mmol/L (3.5-5.0); eGFR CKD-EPI 84.1 (>60)
[2022-08-21] MEDS: Mometasone/Formoter 100/5 MDI INH SCH ×2 (10:04→19:47)
[2022-08-21] MEDS: NS 0.9% 1000 ml BAG 1,000 ML IV SCH (14:11)
[2022-08-21] MEDS: WIXELA INH SCH (19:48)
[2022-08-22] MEDS: NS 0.9% 1000 ml BAG 1,000 ML IV SCH (00:17)
[2022-08-22] MEDS: ZOSYN 3.375 GM Q8H per EXTENDED INFUSION IV SCH ×3 (03:07→21:20)
[2022-08-22] MEDS: Heparin 5000 UNITS/ML 1 mL VIAL SUBCUT SCH ×3 (06:17→21:20)
[2022-08-22 06:53] LABS: ABS Eosinophils 0.1 10^3/ul (0-0.6); ABS Lymphocytes 1.1 10^3/ul (1.0-4.8); ABS Monocytes 0.5 10^3/ul (0-0.8); ABS Neutrophils 7.1 10^3/ul (1.5-7.7); Eosinophil % 1.1 %; Hematocrit 44 % (42-52); Hemoglobin 15.2 g/dL (14.0-18.0); Lymphocyte % 12.2 %; Mean Corpuscular HGB Conc 34 g/dL (31-36); Mean Corpuscular Hemoglobin 29 pg (27-31); Mean Corpuscular Volume 86 fL (80-94); Mean Platelet Volume 9.3 fL (7.4-10.4); Nucleated Red Blood Cells % 0.1; Platelet Count 202 10^3/uL (150-450); Red Blood Count 5.17 10^6 /uL (4.18-5.48); Red Cell Distribution Width 14 % (10-15); White Blood Count 8.8 10^3/uL (3.5-10.8)
[2022-08-22] MEDS ORDERED: Morphine 2 MG/ML SYRINGE IV PRN (07:11)
[2022-08-22 07:13] LABS: Potassium 4.4 mmol/L (3.5-5.0); eGFR CKD-EPI 85.1 (>60)
[2022-08-22] MEDS ORDERED: Acetaminophen IV 1 GM/100ML 1,000 MG/100 ML BAG IV PRN (07:13)
[2022-08-22] MEDS: WIXELA INH SCH ×2 (07:54→21:12)
[2022-08-22] MEDS ORDERED: Influenza vaccine *QUAD* *2022-23* 0.5 ML SYRINGE IM ONE (09:00)
[2022-08-23] MEDS: ZOSYN 3.375 GM Q8H per EXTENDED INFUSION IV SCH (06:02)
[2022-08-23] MEDS: Heparin 5000 UNITS/ML 1 mL VIAL SUBCUT SCH (06:03)
[2022-08-23 07:13] LABS: ABS Eosinophils 0.2 10^3/ul (0-0.6); ABS Lymphocytes 1.1 10^3/ul (1.0-4.8); ABS Monocytes 0.5 10^3/ul (0-0.8); ABS Neutrophils 4.4 10^3/ul (1.5-7.7); Eosinophil % 2.9 %; Hematocrit 48 % (42-52); Hemoglobin 16.6 g/dL (14.0-18.0); Lymphocyte % 17.2 %; Mean Corpuscular HGB Conc 34 g/dL (31-36); Mean Corpuscular Hemoglobin 29 pg (27-31); Mean Corpuscular Volume 85 fL (80-94); Mean Platelet Volume 9.2 fL (7.4-10.4); Nucleated Red Blood Cells % 0.1; Platelet Count 232 10^3/uL (150-450); Red Blood Count 5.68 10^6 /uL (4.18-5.48); Red Cell Distribution Width 14 % (10-15); White Blood Count 6.2 10^3/uL (3.5-10.8)
[2022-08-23 07:26] LABS: Calcium 8.7 mg/dL (8.6-10.3); Potassium 4.6 mmol/L (3.5-5.0); eGFR CKD-EPI 78.8 (>60)
[2022-08-23 08:00] VITALS: BP 125/79
[2022-08-23] MEDS: WIXELA INH SCH (08:52)
== END 2022-08-23 10:35 | disposition home or self-care (01) ==
LOC: EDHOLD 15:47 → ED 15:47 → SUATTDRO 21:32 → SSU 08-21 09:42
PROVIDERS: ADMIT Internal Medicine; ATTEND Internal Medicine